=== PATIENT | male | born 1940 | race Caucasian/White ===

== ENCOUNTER 2017-06-26 09:19 | Inpatient (IN) | payer OTHER, BC ==
[~2017-06-26] VITALS: Ht 167.6 cm; Wt 73.9 kg
[~2017-06-26 09:19] MED LIST: AMLODIPINE BESYL5 MG; AMLODIPINE BESYL5 MG PO; ATORVASTATIN CA80 MG PO; AVALIDE 150-121 EACH; Aspirin E.C. PO; B-121000 MC2 PO; CARBIDOPA/LEVO1 EACH PO; FLOMAX0.4 M1; Flexeril PO; Flomax PO; Hyzaar 100-12.5 PO; LAXATIVE25 MG PO; LIPITOR80 MG; Lipitor PO; Norvasc PO; PLAVIX75 MG PO; PRILOSEC20 MG PO; PRILOSEC40 MG; PriLOSEC OTC PO; STOOL SOFTENER100 M1 PO; TAMSULOSIN HCL0.4 MG PO; Vicodin,Norco 5/325 PO
[2017-06-26 09:53] LABS: HEMATOCRIT 42.8 % (38.0-50.0); HEMOGLOBIN 14.8 G/DL (12.5-16.6); MCH 30.4 PG (29.0-34.0); MCHC 34.6 G/DL (30.0-36.0); MCV 87.9 FL (86-99); PLATELET COUNT 174 K/uL (156-360); RBC DIS.WIDTH-CV 13.2 % (11.8-14.6); RBC DIS.WIDTH-SD 42.3 % (39-53); RED BLOOD COUNT 4.87 M/uL (4.00-5.50); WHITE BLOOD COUNT 10.4 K/uL (4.1-10.2)
[2017-06-26 10:04] LABS: ALBUMIN 4.6 g/dL (3.2-4.8); CHLORIDE 105 mEq/L (99-109); POTASSIUM 3.5 mEq/L (3.7-5.4); SODIUM 137 mEq/L (136-147)
[2017-06-26 10:07] LABS: GLUCOSE 136 mg/dL (70-99); TOTAL PROTEIN 7.6 g/dL (6.4-8.3)
[2017-06-26 10:08] LABS: TOTAL BILIRUBIN 0.9 mg/dL (0.0-1.0)
[2017-06-26 10:10] LABS: ALKALINE PHOSPHATASE 77 IU/L (3-129); CREATININE 3.1 mg/dL (0.6-1.3); GFR ESTIMATE (CALCULATED) 21 mL/min/ (58.99-99999)
[2017-06-26 10:11] LABS: UREA NITROGEN (BUN) 49 mg/dL (9-23)
[2017-06-26 10:12] LABS: AST (GOT) 17 IU/L (2-34)
[2017-06-26 10:13] LABS: ALT (GPT) 9 IU/L (3-49)
[2017-06-26] MEDS ORDERED: IMODIUM A-D2 M2 PO (14:01)
[2017-06-26] MEDS ORDERED: ADULT ASPIRIN R81 MG PO (14:01)
[2017-06-26] MEDS ORDERED: CILOSTAZOL50 MG PO (14:02)
[2017-06-26] MEDS ORDERED: SEROQUEL12.5 MG PO (14:02)
[2017-06-26] MEDS ORDERED: ACID CONTROL150 MG PO (14:02)
[2017-06-26 16:13] LABS: C DIFF TOXIN NEGATIVE (NEGATIVE)
[2017-06-26 18:21] VITALS: BP 140/63
[2017-06-27 00:11] VITALS: BP 122/57
[2017-06-27 07:55] LABS: APPEARANCE CLEAR ((CLEAR)); BILIRUBIN NEGATIVE; BLOOD NEGATIVE; COLOR YELLOW ((YELLOW)); GLUCOSE (STRIP) NEGATIVE; KETONES NEGATIVE; LEUKOCYTES NEGATIVE; NITRITE NEGATIVE; PROTEIN (STRIP) NEGATIVE; SPECIFIC GRAVITY 1.013 (1.000-1.030); UCUL ADDED? NO; UROBILINOGEN 0.2 MG/DL (0.2-1.0)
[2017-06-27 10:47] LABS: HEMATOCRIT 34.2 % (38.0-50.0); MCH 30.2 PG (29.0-34.0); MCHC 34.5 G/DL (30.0-36.0); MCV 87.5 FL (86-99); PLATELET COUNT 128 K/uL (156-360); RBC DIS.WIDTH-CV 13.3 % (11.8-14.6); RED BLOOD COUNT 3.91 M/uL (4.00-5.50); WHITE BLOOD COUNT 5.9 K/uL (4.1-10.2)
[2017-06-27 10:57] LABS: CHLORIDE 110 MEQ/L (99-109); POTASSIUM 3.2 MEQ/L (3.7-5.4); SODIUM 140 MEQ/L (136-147); UREA NITROGEN (BUN) 31 mg/dL (9-23)
[2017-06-27 11:00] LABS: CREATININE 1.3 MG/DL (0.6-1.3); GFR ESTIMATE (CALCULATED) 57 mL/min/ (58.99-99999); GLUCOSE 96 mg/dL (70-99)
[2017-06-27 11:23] LABS: HEMOGLOBIN 11.8 G/DL (12.5-16.6)
[2017-06-27 11:29] LABS: MAGNESIUM 1.6 mg/dl (1.3-2.7)
[2017-06-27 15:09] VITALS: BP 165/75
[2017-06-28] VITALS: BP 144/65
[2017-06-28 07:04] LABS: ALBUMIN 3.1 G/DL (3.2-4.8); CHLORIDE 111 MEQ/L (99-109); GFR ESTIMATE (CALCULATED) > 59 mL/min/ (58.99-99999); GLUCOSE 83 mg/dL (70-99); PHOSPHORUS 1.4 mg/dL (2.5-4.9); POTASSIUM 3.2 MEQ/L (3.7-5.4); SODIUM 139 MEQ/L (136-147); UREA NITROGEN (BUN) 17 mg/dL (9-23)
[2017-06-28 07:47] VITALS: BP 139/65
[2017-06-28 15:26] VITALS: BP 141/66
[2017-06-28 23:56] VITALS: BP 151/72
[2017-06-29 06:32] LABS: HEMATOCRIT 29.9 % (38.0-50.0); HEMOGLOBIN 10.2 G/DL (12.5-16.6); MCH 29.2 PG (29.0-34.0); MCHC 34.1 G/DL (30.0-36.0); MCV 85.7 FL (86-99); PLATELET COUNT 115 K/uL (156-360); RBC DIS.WIDTH-CV 13.3 % (11.8-14.6); RBC DIS.WIDTH-SD 41.5 % (39-53); RED BLOOD COUNT 3.49 M/uL (4.00-5.50); WHITE BLOOD COUNT 3.7 K/uL (4.1-10.2)
[2017-06-29 06:47] LABS: ALBUMIN 2.9 G/DL (3.2-4.8); CHLORIDE 109 MEQ/L (99-109); CREATININE 0.9 MG/DL (0.6-1.3); GFR ESTIMATE (CALCULATED) > 59 mL/min/ (58.99-99999); GLUCOSE 81 mg/dL (70-99); PHOSPHORUS 1.8 mg/dL (2.5-4.9); POTASSIUM 3.2 MEQ/L (3.7-5.4); SODIUM 139 MEQ/L (136-147); UREA NITROGEN (BUN) 10 mg/dL (9-23)
[2017-06-29 08:09] VITALS: BP 123/58
[2017-06-29] MEDS ORDERED: NEUTRA-PHOS,1 PACKET PO (12:30)
[2017-06-29] MEDS ORDERED: BENZONATATE100 MG PO (12:31)
[2017-06-29] MEDS ORDERED: MUCINEX600 MG PO (12:31)
[2017-06-29] MEDS ORDERED: LOVENOX40 MG/0.4 SC (15:31)
[2017-06-29] MEDS ORDERED: FAMOTIDINE20 MG PO (15:32)
[2017-06-29] MEDS ORDERED: K-DUR20 MEQ PO (15:34)
== END 2017-06-29 14:06 | DRG 684 ==
LOC: EME 09:19 → 5SOUTH 14:47 → EDOF 14:47 → ENRESERV 14:49 → 5SOUTH 18:11
PROVIDERS: Emergency Medicine; Internal Medicine; Physician Assistant Medical
DX: N17.9 Acute kidney failure, unspecified (principal); E86.0 Dehydration; E87.6 Hypokalemia; E83.39 Other disorders of phosphorus metabolism; K52.9 Noninfective gastroenteritis and colitis, unspecified; E78.5 Hyperlipidemia, unspecified; G20 Parkinson's disease; I10 Essential (primary) hypertension; I25.10 Atherosclerotic heart disease of native coronary artery without angina pectoris; K21.9 Gastro-esophageal reflux disease without esophagitis; N40.0 Benign prostatic hyperplasia without lower urinary tract symptoms; I73.9 Peripheral vascular disease, unspecified; Z86.73 Personal history of transient ischemic attack (TIA), and cerebral infarction without residual deficits; Z87.891 Personal history of nicotine dependence; Z95.1 Presence of aortocoronary bypass graft; Z95.5 Presence of coronary angioplasty implant and graft; Z79.02 Long term (current) use of antithrombotics/antiplatelets
CPT/HCPCS: 76770; 80048; 80053; 80069; 81003; 83605; 83735; 85027; 87040; 87493; 87506; 97530 GO; J0744; J1650; J7030; J7050; S0030

== ENCOUNTER 2017-06-29 10:21 | Inpatient (IN) | payer OTHER, BC ==
[~2017-06-29] VITALS: Ht 167.6 cm; Wt 77.6 kg
[~2017-06-29 10:21] MED LIST changes: +ACID CONTROL150 MG PO; +ADULT ASPIRIN R81 MG PO; +CILOSTAZOL50 MG PO; +IMODIUM A-D2 M2 PO; +SEROQUEL12.5 MG PO
[2017-06-29] MEDS ORDERED: NEUTRA-PHOS,1 PACKET PO (12:30)
[2017-06-29] MEDS ORDERED: BENZONATATE100 MG PO (12:31)
[2017-06-29] MEDS ORDERED: MUCINEX600 MG PO (12:31)
[2017-06-29 14:45] VITALS: BP 157/71
[2017-06-29] MEDS ORDERED: LOVENOX40 MG/0.4 SC (15:31)
[2017-06-29] MEDS ORDERED: FAMOTIDINE20 MG PO (15:32)
[2017-06-29] MEDS ORDERED: K-DUR20 MEQ PO (15:34)
[2017-06-30 01:38] VITALS: BP 166/77
[2017-06-30 06:26] VITALS: BP 134/68
[2017-06-30 07:33] LABS: HEMATOCRIT 33.7 % (38.0-50.0); HEMOGLOBIN 11.6 G/DL (12.5-16.6); MCH 29.5 PG (29.0-34.0); MCHC 34.4 G/DL (30.0-36.0); MCV 85.8 FL (86-99); PLATELET COUNT 144 K/uL (156-360); RBC DIS.WIDTH-CV 13.1 % (11.8-14.6); RBC DIS.WIDTH-SD 40.8 % (39-53); RED BLOOD COUNT 3.93 M/uL (4.00-5.50); WHITE BLOOD COUNT 4.8 K/uL (4.1-10.2)
[2017-06-30 08:02] LABS: ALBUMIN 3.2 G/DL (3.2-4.8); ALKALINE PHOSPHATASE 43 IU/L (3-129); ALT (GPT) 11 IU/L (3-49); AST (GOT) 20 IU/L (2-34); CHLORIDE 106 MEQ/L (99-109); GFR ESTIMATE (CALCULATED) > 59 mL/min/ (58.99-99999); GLUCOSE 95 mg/dL (70-99); POTASSIUM 4.1 MEQ/L (3.7-5.4); SODIUM 141 MEQ/L (136-147); TOTAL BILIRUBIN 0.6 MG/DL (0.0-1.0); TOTAL PROTEIN 4.9 G/DL (6.4-8.3); UREA NITROGEN (BUN) 9 mg/dL (9-23)
[2017-06-30 14:33] LABS: PHOSPHORUS 1.8 mg/dL (2.5-4.9)
[2017-06-30 15:51] VITALS: BP 155/72
[2017-07-01 05:57] VITALS: BP 160/86
[2017-07-01 15:26] VITALS: BP 138/66
[2017-07-02 06:11] VITALS: BP 169/80
[2017-07-02 15:19] VITALS: BP 109/52
[2017-07-03 05:49] VITALS: BP 154/82
[2017-07-03 15:46] VITALS: BP 136/65
[2017-07-04 05:50] VITALS: BP 158/78
[2017-07-04 15:04] VITALS: BP 140/65
[2017-07-04 17:22] VITALS: BP 165/87
[2017-07-05 06:01] VITALS: BP 150/82
[2017-07-05 07:27] VITALS: BP 124/76
[2017-07-05 16:41] VITALS: BP 112/58
[2017-07-06 05:57] VITALS: BP 155/81
[2017-07-06 07:06] VITALS: BP 126/80
[2017-07-06] MEDS ORDERED: DOCUSATE SODIU100 MG PO (09:23)
[2017-07-06] MEDS ORDERED: STIOLTO RESPIMAT4 GM IH (09:23)
[2017-07-06] MEDS ORDERED: PREDNISONE10 MG PO (09:23)
[2017-07-06 10:45] LABS: BASOPHIL (%) 0.6 % (0-1); BASOPHIL COUNT 0.1 K/uL (0-0.1); EOSINOPHIL (%) 2.3 % (0-5); EOSINOPHIL COUNT 0.2 K/uL (0-0.3); HEMATOCRIT 37.7 % (38.0-50.0); HEMOGLOBIN 12.5 G/DL (12.5-16.6); IMMATURE GRANULOCYTE (%) 2.3 % (0.0-0.7); LYMPHOCYTE (%) 4.9 % (15-42); LYMPHOCYTE COUNT 0.4 K/uL (1.0-2.8); MCH 29.5 PG (29.0-34.0); MCHC 33.2 G/DL (30.0-36.0); MCV 88.9 FL (86-99); MONOCYTE (%) 10.7 % (3-12); MONOCYTE COUNT 0.9 K/uL (0-0.8); NEUTROPHIL (%) 79.2 % (45-76); NEUTROPHIL COUNT 6.8 K/uL (1.8-6.4); RBC DIS.WIDTH-CV 13.2 % (11.8-14.6); RBC DIS.WIDTH-SD 42.5 % (39-53); RED BLOOD COUNT 4.24 M/uL (4.00-5.50); WHITE BLOOD COUNT 8.6 K/uL (4.1-10.2)
[2017-07-06 10:47] LABS: PLATELET COUNT 241 K/uL (156-360)
[2017-07-06 11:16] LABS: CHLORIDE 105 MEQ/L (99-109); CREATININE 1.2 MG/DL (0.6-1.3); GFR ESTIMATE (CALCULATED) > 59 mL/min/ (58.99-99999); GLUCOSE 93 mg/dL (70-99); POTASSIUM 4.3 MEQ/L (3.7-5.4); SODIUM 140 MEQ/L (136-147); UREA NITROGEN (BUN) 17 mg/dL (9-23)
[2017-07-06] MEDS ORDERED: NEUTRA-PHOS,1 PACKET PO (13:19)
[2017-07-06] MEDS ORDERED: K-DUR20 MEQ PO (13:19)
== END 2017-07-06 14:10 | DRG 945 ==
LOC: 3WEST 10:21 → ENPENDDIS 07-06 → 3WEST 07-06 14:10
PROVIDERS: Internal Medicine Pulmonary Disease; Physical Medicine & Rehabilitation Pain Medicine; Psychiatry & Neurology Neurology
PROC: F07M0ZZ Range of Motion and Joint Mobility Treatment of Musculoskeletal System - Whole Body (ICD-10-PCS; principal; 2017-06-29)
DX: R53.1 Weakness (principal); J18.9 Pneumonia, unspecified organism; J44.0 Chronic obstructive pulmonary disease with (acute) lower respiratory infection; J44.1 Chronic obstructive pulmonary disease with (acute) exacerbation; J98.11 Atelectasis; N17.9 Acute kidney failure, unspecified; G20 Parkinson's disease; M54.5 Low back pain; D69.6 Thrombocytopenia, unspecified; D64.9 Anemia, unspecified; E78.00 Pure hypercholesterolemia, unspecified; E78.5 Hyperlipidemia, unspecified; E86.0 Dehydration; E83.51 Hypocalcemia; E83.39 Other disorders of phosphorus metabolism; E87.5 Hyperkalemia; I10 Essential (primary) hypertension; E87.6 Hypokalemia; I25.10 Atherosclerotic heart disease of native coronary artery without angina pectoris; J20.9 Acute bronchitis, unspecified; K21.9 Gastro-esophageal reflux disease without esophagitis; K22.5 Diverticulum of esophagus, acquired; K44.9 Diaphragmatic hernia without obstruction or gangrene; K52.9 Noninfective gastroenteritis and colitis, unspecified; K57.90 Diverticulosis of intestine, part unspecified, without perforation or abscess without bleeding; N27.1 Small kidney, bilateral; N40.1 Benign prostatic hyperplasia with lower urinary tract symptoms; K80.20 Calculus of gallbladder without cholecystitis without obstruction; N20.0 Calculus of kidney; R13.10 Dysphagia, unspecified; R35.1 Nocturia; K22.2 Esophageal obstruction; Z95.1 Presence of aortocoronary bypass graft; Z79.02 Long term (current) use of antithrombotics/antiplatelets; Z79.82 Long term (current) use of aspirin; Z82.49 Family history of ischemic heart disease and other diseases of the circulatory system
CPT/HCPCS: 71045; 71046; 71250; 80048; 80053; 84100; 85025; 85027; 87086; 87502; 94010; 94640; 94640 76; 94667; 94668; 97110 GO; 97530 GP; 99202; J1650; J7512